=== PATIENT | male | born 1965 | race Caucasian/White ===

== ENCOUNTER 2017-08-17 15:35 | Emergency (ER) | payer MEDICARE, OTHER ==
[~2017-08-17] VITALS: Ht 185.4 cm; Wt 122.0 kg
[~2017-08-17 15:35] MED LIST: BACT800T5 PO; CEPH-460 PO; CEPH500C3 PO; GABA300C3 PO; GUAI100S6 PO; GUAISYP4 PO; LEVO125T3 PO; LISI-363 PO; PERC10TA27 PO; ZITH250T PO; ZOLP10TA3 PO
[2017-08-17 16:23] VITALS: BP 188/107; PULSE 78; RESP 18; TEMP 98.7; O2SAT 98
[2017-08-17] MEDS ORDERED: AMBI10TA PO (17:13)
[2017-08-17] MEDS ORDERED: PERC10TA27 PO (17:13)
[2017-08-17] MEDS ORDERED: MUSCLE RELAXER (17:13)
[2017-08-17] MEDS ORDERED: IBUP1TAB7 PO (17:13)
[2017-08-17] MEDS ORDERED: LISI-515 PO (17:13)
[2017-08-17] MEDS ORDERED: GABA300C5 PO (17:13)
[2017-08-17] MEDS ORDERED: LEVO125T4 PO (17:13)
[2017-08-17] MEDS ORDERED: PRAV40TA2 PO (17:13)
[2017-08-17] MEDS ORDERED: TETANUS/DIPHTHERIA TOXOID ADULT 0.5 ML VIAL IM ONE (17:30)
[2017-08-17] MEDS ORDERED: LIDOCAINE HCL 1% 30 ML VIAL INFIL ONE (17:30)
--- NOTE | 2017-08-17 17:37 | PD ---
HPI Chief Complaint: Laceration/Skin Injury Time Seen by Provider: 17:16 Travel History International Travel<30 days: No Contact w/Intl Traveler<30days: No Traveled to known affect area: No History of Present Illness HPI Patient is a 52-year-old male who presents to the emergency department for laceration to the extensor surface of the left thumb. The patient was using a "plate glass grinder "earlier today when he received a laceration to the extensor surface of the left thumb just proximal to the metacarpophalangeal joint. The patient notes difficulty with extension of the left thumb, however, is able to extend at the interphalangeal joint. Last tetanus shot is unknown. The patient is right-hand dominant. He denies any numbness or tingling of the left thumb. Symptoms are moderate. PFSH Past Medical History Arthritis: Yes (KNEE, BACK AND NECK) Blood Disorders: No Anxiety: Yes Depression: No Cancer: Yes (THROAT, TONGUE CA) Cardiovascular Problems: Yes (HIGH CHOLESTEROL) High Cholesterol: Yes Diabetes: No Diminished Hearing: No Endocrine: No Gastrointestinal Disorders: Yes Genitourinary: No Hepatitis: No Hiatal Hernia: No Hypertension: Yes Immune Disorder: No Implanted Vascular Access Dvce: Yes Medical other: No Musculoskeletal: Yes (ARTHRITIS, BACK, HIP FEET PAIN/NUMBNESS, LEFT BICEP TORN) Neurologic: No Psychiatric: Yes Reproductive: No Respiratory: No Immunizations Current: Yes Radiation Therapy: Yes Thyroid Disease: Yes Tetanus Vaccination: Unknown Past Surgical History Abdominal Surgery: Yes (G TUBE INSERTION AND REMOVAL) AICD: No Body Medical Devices: TWO RODS IN BACK Joint Replacement: No Oral Surgery: Yes (TEETH EXTRACTED) Pacemaker: No Other Surgery: Yes Social History Alcohol Use: No Tobacco Use: No Substance Use: No Allergies-Medications (Allergen,Severity, Reaction): Coded Allergies: *MDRO Multi-Drug Resistant Organism (Verified Allergy, Unknown, 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 Reported Meds & Prescriptions Reported Meds & Active Scripts Active Reported Ambien (Zolpidem Tartrate) 10 Mg Tab 10 Mg PO HS PRN Percocet (Oxycodone-Acetaminophen) 10-325 mg Tab 1 Tab PO Q6H PRN Ibuprofen 800 Mg Tab 800 Mg PO Q8H PRN Gabapentin 300 Mg Cap 300 Mg PO TID [Muscle Relaxer] Pravastatin 40 Mg Tab 40 Mg PO DAILY Levothyroxine (Levothyroxine Sodium) 125 Mcg Tab 125 Mcg PO DAILY Lisinopril 20 Mg Tab 20 Mg PO DAILY Review of Systems Except as stated in HPI: all other systems reviewed are Neg Musculoskeletal: Positive: Limited ROM, Pain Skin: Positive Other (As noted in the history of present illness) Neurologic: No: Paresthesia, Sensory Disturbance Physical Exam Narrative GENERAL: Awake, alert, pleasant 52-year-old male who appears his stated age and is in no acute respiratory distress. SKIN: 2.5 cm laceration that is transverse just proximal to the MCP of the first digit left hand. No active bleeding noted. HEAD: Atraumatic. Normocephalic. EYES: No injection or drainage. ENT: No nasal bleeding or discharge. Mucous membranes pink and moist. NECK: Trachea midline. No JVD. MUSCULOSKELETAL: 2.5 cm transverse laceration to the left thumb just proximal to the MCP. The patient is able to abduct the left thumb d as well as abduct the left thumb. He is able to flex at the MCP and interphalangeal joint, is able to extend at the interphalangeal joint, but has limited ability to extend at the left thumb. Positive left radial pulse. NEUROLOGICAL: Awake and alert. No obvious cranial nerve deficits. Motor grossly within normal limits. Normal speech. Sensation is symmetric over the radial, ulnar, and distal aspect of the fifth digit left hand. PSYCHIATRIC: Appropriate mood and affect; insight and judgment normal. Data Data Last Documented VS Vital Signs Date Time Temp Pulse Resp B/P (MAP) Pulse Ox O2 Delivery O2 Flow Rate FiO2 08/17/17 17:07 16 08/17/17 16:23 98.7 78 188/107 (134) 98 Orders Orders Tetanus/Diphtheria Tox Adult (Tetanus/Di (08/17/17 17:30) Lidocaine 1% Inj (Xylocaine 1% Inj) (08/17/17 17:30) Finger (Mgv9sib) (08/17/17 ) Lidocaine Pf 1% Inj (Xylocaine-Mpf 1% In (08/17/17 18:20) Clindamycin (Cleocin) (08/17/17 19:15) Splint Or Brace Apply/Monitor (08/17/17 19:01) Ed Discharge Order (08/17/17 19:02) [facility] Medical Decision Making Medical Screen Exam Complete: Yes Emergency Medical Condition: Yes Medical Record Reviewed: Yes Interpretation(s) Last Impressions Finger X-Ray 08/17/17 0000 Signed Impressions: Service Date/Time: Thursday, August 17, 2017 17:44 - CONCLUSION: 1. No acute bony abnormalities. No radiopaque foreign body. Melchor Roberson MD Differential Diagnosis Differential diagnosis includes laceration, tendon laceration, avulsion, fracture, contusion, hematoma, abrasion. Narrative Course X-ray of the left bone was obtained. Tetanus shot was updated. X-ray was obtained, no obvious fracture. The wound was infiltrated with lidocaine, 1%, using a 27-gauge needle. The area was irrigated and inspected. A blood pressure cuff was applied the left upper extremity, was inflated to 200 mmHg, clamp was placed, the wound was inspected and irrigated with 1 L of saline. The patient has a transverse laceration through the extensor tendon. The area was irrigated, cleaned with sterile saline and Betadine, irrigated once again. I then discussed the patient the on-call hand surgeon, Dr. Elizondo. After discussion it was agreed that wound would be irrigated, the patient would have the laceration sutured, he would be placed in a thumb spica, antibiotics, and outpatient follow-up tomorrow or Tuesday for possible evaluation of surgical repair. Diagnosis Primary Impression: Tendon laceration Referrals: Oliver Elizondo MD call for appointment Call the office in the morning to make an appointment for evaluation and possible repair of tendon laceration Patient Instructions: General Instructions Additional Instructions: Please provide the patient a copy of his x-ray results at discharge. Thumb spica as directed. Call the hand surgeon for an appointment in the morning to be evaluated either tomorrow morning or Tuesday for evaluation and possible surgical fixation of the tendon laceration. Med/Other Pt SpecificInfo: Prescription(s) given Scripts Hydrocodone-Acetaminophen ([place]) 5 Mg-325 Mg Tab 1 TAB PO Q6H Y for PAIN, #10 TAB 0 Refills Prov: Ha Carpio MD 08/17/17 Clindamycin (Cleocin) 150 Mg Cap 150 MG PO Q6H for Infection for 10 Days, #40 CAP 0 Refills Prov: Ha Caripo MD 08/17/17 Disposition: 01 DISCHARGE HOME Condition: Stable Ha Carpio MD Aug 17, 2017 17:37
[2017-08-17] MEDS ORDERED: LIDOCAINE HCL 1% PF 30 ML VIAL ONE (18:20)
--- NOTE | 2017-08-17 18:41 | RADRPT ---
EXAM DATE/TIME: 08/17/2017 17:44 [facility] COMPARISON: No previous studies available for comparison. INDICATIONS : Laceration to left 1st MCPJ today MEDICAL HISTORY : None. SURGICAL HISTORY : None. ENCOUNTER: Initial ACUITY: 1 day PAIN SCORE: 4/10 LOCATION: Left 1st MCPJ FINDINGS: Examination of the first digit of the left hand demonstrates no evidence of fracture or dislocation. No radiopaque foreign bodies are seen. CONCLUSION: 1. No acute bony abnormalities. No radiopaque foreign body. Meclhor Roberson MD on August 17, 2017 at 18:39 Board Certified Radiologist. This report was verified electronically.
[2017-08-17] MEDS ORDERED: NORC5TAB PO (19:04)
[2017-08-17] MEDS ORDERED: CLIN150 PO (19:04)
[2017-08-17 19:13] VITALS: BP 155/95; PULSE 74; RESP 16; O2SAT 99
[2017-08-17] MEDS ORDERED: CLINDAMYCIN 150 MG CAP PO ONE (19:15)
== END 2017-08-17 19:32 | disposition home or self-care (01) ==
LOC: PHED 15:35
DX: S66.222A Laceration of extensor muscle, fascia and tendon of left thumb at wrist and hand level, initial encounter (principal); W31.89XA Contact with other specified machinery, initial encounter; I10 Essential (primary) hypertension; E78.00 Pure hypercholesterolemia, unspecified; M19.90 Unspecified osteoarthritis, unspecified site; F41.9 Anxiety disorder, unspecified; Z23 Encounter for immunization; Z85.810 Personal history of malignant neoplasm of tongue; Z79.899 Other long term (current) drug therapy
CPT/HCPCS: 12001; 73140; 90471; 90714; 99284; L3808

== ENCOUNTER → 2017-08-20 | Day surgery (SDC) | payer MEDICARE ==
[~2017-08-20] VITALS: Ht 185.4 cm; Wt 120.5 kg
[~2017-08-20] MED LIST changes: +ACETAMINOPHEN 1000 MG/100 ML 100 ML IV ONE; +AMBI10TA PO; -BACT800T5 PO; +CEFAZOLIN INJ 2,000 MG in SODIUM CHLORIDE 0.9% INJ 100 ML IV ONE; -CEPH-460 PO; -CEPH500C3 PO; +CHLORHEXIDINE GLUCONATE 2 % 1 PACK (2 CLOTHS) TOPICAL PRN; +CLIN150 PO; +DEXAMETHASONE SOD PHOS 4 MG/ML VIAL IV ONE; +DO NOT ADM ANY ANTICOAGULANT DRUGS PRN; -GABA300C3 PO; +GABA300C5 PO; -GUAI100S6 PO; -GUAISYP4 PO; +IBUP1TAB7 PO; +INSULIN HUMAN REGULAR 1,000 UNITS/10 ML VIAL SQ PRN; +LACTATED RINGER'S 1000 ML INJ 500 ML IV SCH; +LACTATED RINGER'S 1000 ML IV PRN; -LEVO125T3 PO; +LEVO125T4 PO; +LIDOCAINE HCL 1% PF 5 ML SYRINGE OTHER ONE; +LIDOCAINE HCL 2% 50 ML VIAL ONE; -LISI-363 PO; +LISI-515 PO; +METOPROLOL TARTRATE 25 MG TAB PO PRN; +MORPHINE SULFATE 4 MG/ML INJ ONE; +MUSCLE RELAXER; +NEOMYCIN/POLYMYXIN 1 ML G.U. IRRIGANT ONE; +NORC5TAB PO; +ONDANSETRON HCL 4 MG/2 ML VIAL IV ONE; +PHENYLEPH/NS 1000 MCG/10 ML SYR IV ONE; +POVIDONE IODINE 5% (ANTISEPSIS KIT) 4 APPLICATIONS EACH NARE PRN; +PRAV40TA2 PO; +PROPOFOL 200 MG/20 ML AMP IV ONE; +SODIUM CHLORID 0.9% 500 ML IV PRN; -ZITH250T PO; -ZOLP10TA3 PO; +ceFAZolin 2 GM PREMIX 50 ML ONE; +ePHEDrine/NS 25 MG/5 ML SYRINGE IV ONE; +oxyCODONE/ACETAMINOPHEN 10 MG/325 MG TAB ONE; +oxyCODONE/ACETAMINOPHEN 10 MG/325 MG TAB PO ONE; +oxyCODONE/ACETAMINOPHEN 5 MG/325 MG TAB ONE
[2017-08-20 11:36] VITALS: PULSE 83
--- NOTE | 2017-08-20 16:58 | PD.OP ---
Operative Report Preoperative Diagnosis: (1) Laceration of extensor muscle, fascia, and tendon of left thumb at wrist and hand level Postoperative Diagnosis: (1) Laceration of extensor muscle, fascia, and tendon of left thumb at wrist and hand level Procedure: exploration and repair extensor Pollicis longus tendon laceration left thumb/ hand Anesthesia: general Surgeon: Oliver Elizondo Attendant [employer](s): [employer] Operation and Findings: complete laceration of the extensor pollicis longus tendon zone IV left thumb periosteal laceration over the first metacarpal left thumb Oliver Elizondo MD Aug 20, 2017 16:58
[2017-08-20 18:30] VITALS: BP 125/72; PULSE 88; RESP 16; O2SAT 94
--- NOTE | 2017-08-20 18:42 | RADRPT ---
EXAM DATE/TIME: 08/20/2017 18:26 [facility] COMPARISON: CHEST SINGLE AP, March 30, 2016, 23:20. INDICATIONS : Foreign body. Missing tooth. MEDICAL HISTORY : None. SURGICAL HISTORY : None. ENCOUNTER: Initial ACUITY: 1 day PAIN SCORE: 0/10 LOCATION: Bilateral chest FINDINGS: A single view of the chest demonstrates the lungs to be symmetrically aerated without evidence of mas s, infiltrate or effusion. The cardiomediastinal contours are unremarkable. Osseous structures are intact. Os no radiopaque foreign body. CONCLUSION: No radiopaque foreign body. Upper abdominal film is pending.. Hemal Gallego MD FACR on August 20, 2017 at 18:38 Board Certified Radiologist. This report was verified electronically.
--- NOTE | 2017-08-20 19:06 | RADRPT ---
EXAM DATE/TIME: 08/20/2017 18:46 [facility] COMPARISON: No previous studies available for comparison. INDICATIONS : Foreign body. Missing tooth. MEDICAL HISTORY : None. SURGICAL HISTORY : Spine fusion. ENCOUNTER: Initial ACUITY: 1 day PAIN SCORE: 0/10 LOCATION: Abdomen. FINDINGS: A single erect view of the abdomen demonstrates the lower lungs to be clear. No evidence of free int raperitoneal gas. The visualized bowel loops are unremarkable. Lumbar fixation and laminotomy noted CONCLUSION: No radiopaque foreign body. Hemal Gallego MD FACR on August 20, 2017 at 19:02 Board Certified Radiologist. This report was verified electronically.
--- NOTE | 2017-08-20 19:17 | EKG ---
Date Performed: 08/20/2017 Time Performed: 11:12:09 PTAGE: 52 years EKG: Sinus rhythm MODERATE INTRAVENTRICULAR CONDUCTION DELAY NONSPECIFIC T-WAVE ABNORMALITY BORDERLINE ECG NO PREVIOUS TRACING DOCTOR: eGrardo Porras Interpretating Date/Time 08/20/2017 19:15:57
--- NOTE | 2017-08-20 20:51 | MP ---
cc: Oliver Elizondo MD, Srikanth MD DATE OF OPERATION: 08/20/2017 PREOPERATIVE DIAGNOSIS: Extensor tendon laceration, left thumb/hand. POSTOPERATIVE DIAGNOSIS: Extensor pollicis longus tendon laceration, zone 4 left thumb/hand. DETAILS OF PROCEDURE: Exploration and repair extensor pollicis longus tendon, left thumb/hand. SURGEON: Dr. Oliver Elizondo. ANESTHESIA: General. ESTIMATED BLOOD LOSS: Minimal. TOURNIQUET TIME: 55 minutes at 250 mmHg. COMPLICATIONS: No complication. DISPOSITION: To PACU stable. INDICATIONS: The patient is a 52-year-old right hand dominant male who presented with complaints of a saw blade injury to the left hand/thumb. Two days ago, he complained of inability to extend the thumb. On examination, he had sutured laceration of the dorsal aspect of the MP joint region of the thumb and no active extension of the IP joint of the thumb. The patient also had no active retropulsion of the thumb. He was clinically diagnosed with extensor pollicis tendon laceration and was consented for exploration and repair of extensor tendon, left thumb/hand. The patient was explained the risks and benefits of the procedure. DESCRIPTION OF PROCEDURE: The patient was brought to the operating room under general anesthesia. The left upper extremity was sterilely prepped and draped. The previously placed sutures were removed. Incision site was marked, incorporating the laceration both proximally and distally in a zigzag fashion, each measuring about 1-2 cm. After limb elevation, tourniquet was inflated to 250 mmHg. Incisions were then made over the proposed incision site. Exploration was carried out. There was evidence of complete laceration of extensor pollicis longus tendon just proximal to the MP joint of the thumb. There was also evidence of laceration over the periosteum of the thumb metacarpal with no evidence of fracture. The proximal stump of the EPL was retracted proximally. This was then traced and brought into the laceration site. This was held in place with a 25-gauge needle. The distal stump was just proximal to the MP joint of the thumb. The EPB tendon was intact. A thorough wash was given. Debridement of the foreign body material was carried out from both the periosteum surrounding subcutaneous soft tissue. A thorough wash was given using normal saline mixed with irrigant. The tendon edges were then freshened and held and the tendon EPL was then sutured using 3-0 Supramid in a modified Tsuge fashion with 4 strands crossing the repair site. This was then reinforced with 5-0 Prolene in a continuous epitenon stitch. The thumb was put through a passive range of motion. The repair site was holding well and there was no evidence of gaping at the repair site. Tourniquet was deflated. Total tourniquet time was 55 minutes. The patient had good distal circulation after release of tourniquet. Bleeding points were cauterized with bipolar cautery. Skin flaps were then approximated using 5-0 nylon in a horizontal mattress interrupted fashion. Xeroform, bacitracin dressing applied. About 5 mL of local anesthetic containing 2% lidocaine, ____% Marcaine was injected across the laceration and incision site. Bulky hand dressing was applied which was held in place by Sof-Rol and a thumb spica splint was applied, keeping the wrist in extension and the IP joint in extension. The patient was recovered and sent to recovery room in stable condition. He will follow up in 2-3 days' time for a dressing change. Oliver Elizondo MD SE//jhonathan , 05:03 PM , 08:01 PM
== END | disposition home or self-care (01) ==
LOC: HSDC 10:41
PROVIDERS: ATTEND Surgery Surgery of the Hand
DX: S66.222A Laceration of extensor muscle, fascia and tendon of left thumb at wrist and hand level, initial encounter (principal); I10 Essential (primary) hypertension; E78.5 Hyperlipidemia, unspecified; E07.9 Disorder of thyroid, unspecified; R94.31 Abnormal electrocardiogram [ECG] [EKG]
CPT/HCPCS: 01810; 26410; 71045; 74018; 93005; J0131; J0690; J1100; J2270; J2370; J2405; J3010